=== PATIENT | female | born 1950 | race Caucasian/White ===

== ENCOUNTER 2023-01-26 06:59 | Day surgery (SDC) | payer MEDICARE ==
[2023-01-25 09:50] VITALS: BMI 32.1
[2023-01-26] MEDS ORDERED: fentaNYL 50 mcg/mL 1 mL Vial ONE (08:46)
[2023-01-26] MEDS ORDERED: PROPOFOL 20 ML ONE (08:46)
[2023-01-26] MEDS ORDERED: Lidocaine 1% PF 5 ML VIAL ONE (08:48)
[2023-01-26] MEDS ORDERED: Bupivacaine PF 0.5% 30 ML VIAL ONE (08:55)
[2023-01-26] MEDS ORDERED: Clindamycin/D5W 900 mg/50 ml Premix Bag ONE (09:05)
[2023-01-26] MEDS ORDERED: ePHEDrine Sulfate 50 MG/10 ML VIAL ONE (09:25)
[2023-01-26] MEDS ORDERED: Ondansetron PF 4 MG/2 ML Vial ONE (09:44)
== END 2023-01-26 11:30 | disposition home or self-care (01) ==
LOC: CSHSDC 06:59
PROVIDERS: ATTEND Podiatrist Foot & Ankle Surgery
PROC: 0SGQ07Z Fusion of Left Toe Phalangeal Joint with Autologous Tissue Substitute, Open Approach (ICD-10-PCS; principal; 2023-01-26)
DX: M71.342 Other bursal cyst, left hand (principal); I10 Essential (primary) hypertension; E78.2 Mixed hyperlipidemia; J30.2 Other seasonal allergic rhinitis; Z88.0 Allergy status to penicillin; Z79.899 Other long term (current) drug therapy; Z91.040 Latex allergy status
CPT/HCPCS: 28285; 73620; C1713 ×2; J3010; J2405; J2704; J3490; S0020